=== PATIENT | female | born 1955 | race Caucasian/White ===

== ENCOUNTER 2017-08-25 00:52 | Inpatient (IN) | payer MEDICARE ==
[2017-08-25 01:02] LABS: ADD MAN DIFF? NO
[2017-08-25 01:04] LABS: BASO % 1 % (0-3); EOS # 0.2 x10^3/uL (0.0-0.7); EOS % 2 % (0-3); HEMATOCRIT 36.6 % (36.0-47.0); HEMOGLOBIN 12.5 g/dL (12.0-15.5); LYMPH # 1.9 x10^3/uL (1.0-4.8); LYMPH % 23 % (24-48); MEAN CORPUSCULAR HEMOGLOBIN 30 pg (25-35); MEAN CORPUSCULAR HGB CONC 34 g/dL (31-37); MEAN CORPUSCULAR VOLUME 87 fL (79-100); MONO # 0.6 x10^3/uL (0.0-1.1); MONO % 7 % (0-9); NEUT # 5.5 x10^3uL (1.8-7.7); NEUT % 67 % (31-73); PLATELET COUNT 197 x10^3/uL (140-400); RED BLOOD COUNT 4.21 x10^6/uL (3.50-5.40); RED CELL DISTRIBUTION WIDTH 13.1 % (11.5-14.5); WHITE BLOOD COUNT 8.2 x10^3/uL (4.0-11.0)
[2017-08-25 01:12] LABS: ANION GAP 6 (6-14); BLOOD UREA NITROGEN 17 mg/dL (7-20); BUN/CREATININE RATIO 21 (6-20); CALCIUM 9.1 mg/dL (8.5-10.1); CARBON DIOXIDE 29 mmol/L (21-32); CHLORIDE 108 mmol/L (98-107); CREATININE 0.8 mg/dL (0.6-1.0); GFR 72.7; GLUCOSE 113 mg/dL (70-99); POTASSIUM 3.4 mmol/L (3.5-5.1); SODIUM 143 mmol/L (136-145)
[2017-08-25 01:18] LABS: ALBUMIN 3.7 g/dL (3.4-5.0); ALBUMIN/GLOBULIN RATIO 1.2 (1.0-1.7); ALK PHOS 78 U/L (46-116); ALT (SGPT) 24 U/L (14-59); AST (SGOT) 16 U/L (15-37); TOTAL BILIRUBIN 0.4 mg/dL (0.2-1.0); TOTAL PROTEIN 6.9 g/dL (6.4-8.2)
[2017-08-25 01:21] LABS: TROPONINI < 0.017 ng/mL (0.000-0.055)
[2017-08-25 01:41] LABS: INR 1.1 (0.8-1.1); PARTIAL THROMBOPLASTIN TIME 26 SEC (24-38); PROTHROMBIN TIME PATIENT 13.7 SEC (11.7-14.0)
[2017-08-25] MEDS ORDERED: ONDANSETRON PF 4 MG/2 ML VIAL. IV ×2 (01:45→09:00)
[2017-08-25] MEDS: fentaNYL PF VIAL 100 MCG/2 ML VIAL IV ×6 (01:47→18:01)
[2017-08-25] MEDS: fentaNYL PF VIAL 100 MCG/2 ML VIAL IM (02:00)
[2017-08-25] MEDS: IV NORMAL SALINE 1000ML BAG 1,000 ML IV ×3 (02:30→21:25)
[2017-08-25] MEDS: POTASSIUM CHLORIDE 20 MEQ TABLET.ER. PO (09:18)
[2017-08-25] MEDS: OXYBUTYNIN CHLORIDE 5 MG TABLET PO ×2 (11:46→21:00)
[2017-08-25] MEDS ORDERED: ceFAZolin SODIUM 1 GM in IV DEXTROSE 5% 50 ML IV (14:15)
[2017-08-25] MEDS ORDERED: ceFAZolin SODIUM IV Push 1 GM VIAL. IVP (14:30)
[2017-08-25] MEDS: CALCIUM CARB/VIT D3 250/125 TABLET. PO (17:00)
[2017-08-25 19:09] LABS: MRSA BY PCR Negative (Negative)
[2017-08-25] MEDS: CHOLECALCIFEROL (VITAMIN D3) 1,000 UNIT TABLET PO (21:00)
[2017-08-25] MEDS: CARBIDOPA/LEVODOPA 25/100MG TABLET PO (21:00)
[2017-08-25] MEDS: ATORVASTATIN CALCIUM 10 MG TABLET. PO (21:00)
[2017-08-26] MEDS: fentaNYL PF VIAL 100 MCG/2 ML VIAL IV ×3 (02:28→20:48)
[2017-08-26 03:56] LABS: ADD MAN DIFF? NO
[2017-08-26 04:08] LABS: BASO % 0 % (0-3); EOS # 0.1 x10^3/uL (0.0-0.7); EOS % 1 % (0-3); HEMATOCRIT 35.4 % (36.0-47.0); HEMOGLOBIN 12.3 g/dL (12.0-15.5); LYMPH # 0.9 x10^3/uL (1.0-4.8); LYMPH % 8 % (24-48); MEAN CORPUSCULAR HEMOGLOBIN 30 pg (25-35); MEAN CORPUSCULAR HGB CONC 35 g/dL (31-37); MEAN CORPUSCULAR VOLUME 86 fL (79-100); MONO # 0.7 x10^3/uL (0.0-1.1); MONO % 6 % (0-9); NEUT # 9.5 x10^3uL (1.8-7.7); NEUT % 84 % (31-73); PLATELET COUNT 170 x10^3/uL (140-400); RED BLOOD COUNT 4.14 x10^6/uL (3.50-5.40); RED CELL DISTRIBUTION WIDTH 12.8 % (11.5-14.5); WHITE BLOOD COUNT 11.3 x10^3/uL (4.0-11.0)
[2017-08-26 04:17] LABS: ANION GAP 9 (6-14); BLOOD UREA NITROGEN 9 mg/dL (7-20); CALCIUM 8.4 mg/dL (8.5-10.1); CARBON DIOXIDE 25 mmol/L (21-32); CHLORIDE 105 mmol/L (98-107); CREATININE 0.5 mg/dL (0.6-1.0); GLUCOSE 120 mg/dL (70-99); POTASSIUM 3.4 mmol/L (3.5-5.1); SODIUM 139 mmol/L (136-145)
[2017-08-26] MEDS: CALCIUM CARB/VIT D3 250/125 TABLET. PO ×2 (07:54→14:59)
[2017-08-26] MEDS: OXYBUTYNIN CHLORIDE 5 MG TABLET PO ×2 (07:55→20:29)
[2017-08-26] MEDS: CHOLECALCIFEROL (VITAMIN D3) 1,000 UNIT TABLET PO ×2 (07:55→20:30)
[2017-08-26] MEDS ORDERED: ceFAZolin SODIUM 1 GM in IV DEXTROSE 5% 50 ML IV ×2 (08:00→15:00)
[2017-08-26] MEDS ORDERED: LIDOCAINE 2% PF Vial for OR 5 ML VIAL. (08:34)
[2017-08-26] MEDS ORDERED: DEXAMETHASONE SOD PHOS 20 MG/5 ML VIAL. (08:34)
[2017-08-26] MEDS: POTASSIUM CL 20MEQ D5-0.2%NACL 1,000 ML IV ×2 (08:34→15:00)
[2017-08-26] MEDS ORDERED: PROPOFOL 20 ML IV (08:34)
[2017-08-26] MEDS ORDERED: fentaNYL PF VIAL 100 MCG/2 ML VIAL ×2 (08:35→10:35)
[2017-08-26] MEDS ORDERED: ONDANSETRON PF 4 MG/2 ML VIAL. (08:35)
[2017-08-26] MEDS ORDERED: ROCURONIUM 50 MG/5 ML VIAL. (08:36)
[2017-08-26] MEDS ORDERED: ePHEDrine PF IN SALINE 50 MG/5 ML DISP.SYRIN IV (08:37)
[2017-08-26] MEDS ORDERED: PHENYLEPHRINE in 0.9% NACL PF 1 MG/10 ML SYRINGE. IV (08:38)
[2017-08-26] MEDS ORDERED: MORPHINE SULFATE 2 MG/ML DISP.SYRIN. IV (09:30)
[2017-08-26] MEDS ORDERED: PROCHLORPERAZINE 10 MG/2 ML VIAL. IV (09:30)
[2017-08-26] MEDS ORDERED: ONDANSETRON PF 4 MG/2 ML VIAL. IV (09:30)
[2017-08-26] MEDS ORDERED: fentaNYL PF VIAL 100 MCG/2 ML VIAL IV ×2 (09:30)
[2017-08-26] MEDS: LIDOCAINE 1% PF 2 ML VIAL. ID (09:35)
[2017-08-26] MEDS: IV RINGERS,LACTATED 1000ML 1,000 ML IV (09:47)
[2017-08-26] MEDS: MORPHINE SULFATE 5 MG, KETOROLAC 30 MG, ROPIVacaine 0.5% PF 60 ML, EPINEPHrine 0.5 MG i... INT ART (10:41)
[2017-08-26] MEDS ORDERED: NEOSTIGMINE METHYLSULFATE 5 MG/5 ML SYRINGE. (11:31)
[2017-08-26] MEDS ORDERED: GLYCOPYRROLATE 1 MG/5 ML VIAL. (11:32)
[2017-08-26] MEDS ORDERED: ESMOLOL 100 MG/10 ML VIAL. IV (11:33)
[2017-08-26] MEDS: ceFAZolin SODIUM IV Push 1 GM VIAL. IVP ×2 (14:59→20:53)
[2017-08-26] MEDS: RIVAROXABAN 10 MG TABLET. PO (15:00)
[2017-08-26] MEDS: ATORVASTATIN CALCIUM 10 MG TABLET. PO (20:29)
[2017-08-26] MEDS: CARBIDOPA/LEVODOPA 25/100MG TABLET PO (20:30)
[2017-08-27] MEDS: ceFAZolin SODIUM IV Push 1 GM VIAL. IVP (03:04)
[2017-08-27 04:39] LABS: ADD MAN DIFF? NO
[2017-08-27 04:48] LABS: BASO % 0 % (0-3); EOS % 0 % (0-3); HEMOGLOBIN 10.4 g/dL (12.0-15.5); LYMPH # 0.8 x10^3/uL (1.0-4.8); LYMPH % 6 % (24-48); MEAN CORPUSCULAR HEMOGLOBIN 31 pg (25-35); MEAN CORPUSCULAR HGB CONC 36 g/dL (31-37); MEAN CORPUSCULAR VOLUME 85 fL (79-100); MONO # 0.9 x10^3/uL (0.0-1.1); MONO % 7 % (0-9); NEUT # 11.6 x10^3uL (1.8-7.7); NEUT % 87 % (31-73); PLATELET COUNT 131 x10^3/uL (140-400); RED CELL DISTRIBUTION WIDTH 12.9 % (11.5-14.5); WHITE BLOOD COUNT 13.3 x10^3/uL (4.0-11.0)
[2017-08-27 05:08] LABS: ANION GAP 4 (6-14); BLOOD UREA NITROGEN 11 mg/dL (7-20); CALCIUM 8.4 mg/dL (8.5-10.1); CARBON DIOXIDE 29 mmol/L (21-32); CHLORIDE 104 mmol/L (98-107); CREATININE 0.6 mg/dL (0.6-1.0); GFR 101.3; GLUCOSE 170 mg/dL (70-99); MAGNESIUM 1.9 mg/dL (1.8-2.4); SODIUM 137 mmol/L (136-145)
[2017-08-27] MEDS: fentaNYL PF VIAL 100 MCG/2 ML VIAL IV ×2 (05:49→10:25)
[2017-08-27] MEDS: CALCIUM CARB/VIT D3 250/125 TABLET. PO ×2 (08:00→17:01)
[2017-08-27] MEDS: POTASSIUM CL 20MEQ D5-0.2%NACL 1,000 ML IV ×3 (08:34→23:42)
[2017-08-27] MEDS: OXYBUTYNIN CHLORIDE 5 MG TABLET PO ×2 (09:00→22:23)
[2017-08-27] MEDS: CHOLECALCIFEROL (VITAMIN D3) 1,000 UNIT TABLET PO ×2 (09:00→22:24)
[2017-08-27] MEDS: ACETAMINOPHEN 500 MG TABLET PO ×2 (17:00→22:23)
[2017-08-27] MEDS: RIVAROXABAN 10 MG TABLET. PO (17:01)
[2017-08-27] MEDS: ATORVASTATIN CALCIUM 10 MG TABLET. PO (22:23)
[2017-08-27] MEDS: CARBIDOPA/LEVODOPA 25/100MG TABLET PO (22:24)
[2017-08-28 04:52] LABS: ADD MAN DIFF? NO
[2017-08-28 04:57] LABS: BASO % 0 % (0-3); EOS # 0.3 x10^3/uL (0.0-0.7); EOS % 3 % (0-3); HEMATOCRIT 24.6 % (36.0-47.0); HEMOGLOBIN 8.9 g/dL (12.0-15.5); LYMPH # 1.6 x10^3/uL (1.0-4.8); LYMPH % 16 % (24-48); MEAN CORPUSCULAR HEMOGLOBIN 31 pg (25-35); MEAN CORPUSCULAR HGB CONC 36 g/dL (31-37); MEAN CORPUSCULAR VOLUME 86 fL (79-100); MONO # 0.7 x10^3/uL (0.0-1.1); MONO % 7 % (0-9); NEUT # 7.6 x10^3uL (1.8-7.7); NEUT % 74 % (31-73); PLATELET COUNT 153 x10^3/uL (140-400); RED BLOOD COUNT 2.88 x10^6/uL (3.50-5.40); WHITE BLOOD COUNT 10.2 x10^3/uL (4.0-11.0)
[2017-08-28] MEDS: POTASSIUM CL 20MEQ D5-0.2%NACL 1,000 ML IV ×2 (05:27→15:57)
[2017-08-28] MEDS: fentaNYL PF VIAL 100 MCG/2 ML VIAL IV ×2 (05:31→08:42)
[2017-08-28] MEDS: OXYBUTYNIN CHLORIDE 5 MG TABLET PO ×2 (08:45→21:00)
[2017-08-28] MEDS: CALCIUM CARB/VIT D3 250/125 TABLET. PO ×2 (08:45→15:59)
[2017-08-28] MEDS: CHOLECALCIFEROL (VITAMIN D3) 1,000 UNIT TABLET PO ×2 (08:45→21:00)
[2017-08-28] MEDS: ACETAMINOPHEN 500 MG TABLET PO ×2 (08:49→15:51)
[2017-08-28] MEDS ORDERED: fentaNYL PF VIAL 100 MCG/2 ML VIAL IV (11:15)
[2017-08-28] MEDS: ANTI-COAG MONITOR BY PHARMACY. MC (14:11)
[2017-08-28] MEDS: RIVAROXABAN 10 MG TABLET. PO (15:59)
[2017-08-28] MEDS: traMADol 50 MG TABLET PO (17:45)
[2017-08-28] MEDS ORDERED: CYCLOBENZAPRINE 10 MG TABLET. PO (19:30)
[2017-08-28] MEDS: ATORVASTATIN CALCIUM 10 MG TABLET. PO (21:00)
[2017-08-28] MEDS: CARBIDOPA/LEVODOPA 25/100MG TABLET PO (21:00)
[2017-08-29] MEDS: POTASSIUM CL 20MEQ D5-0.2%NACL 1,000 ML IV (06:26)
[2017-08-29] MEDS: CHOLECALCIFEROL (VITAMIN D3) 1,000 UNIT TABLET PO (08:29)
[2017-08-29] MEDS: CALCIUM CARB/VIT D3 250/125 TABLET. PO (08:29)
[2017-08-29] MEDS: OXYBUTYNIN CHLORIDE 5 MG TABLET PO (08:29)
[2017-08-29] MEDS: traMADol 50 MG TABLET PO (08:45)
[2017-08-29] MEDS: ANTI-COAG MONITOR BY PHARMACY. MC (10:36)
== END 2017-08-29 15:30 | DRG 469 ==
LOC: ER 00:52 → 4 NORTH 01:19
PROC: 0SRR0J9 Replacement of Right Hip Joint, Femoral Surface with Synthetic Substitute, Cemented, Open Approach (ICD-10-PCS; principal; 2017-08-26 09:55)
DX: S72.001A Fracture of unspecified part of neck of right femur, initial encounter for closed fracture (principal); G93.40 Encephalopathy, unspecified; R13.10 Dysphagia, unspecified; Z96.641 Presence of right artificial hip joint; E87.6 Hypokalemia; D64.9 Anemia, unspecified; D72.829 Elevated white blood cell count, unspecified; W18.39XA Other fall on same level, initial encounter; G20 Parkinson's disease; Z88.8 Allergy status to other drugs, medicaments and biological substances; Y93.89 Activity, other specified; Y92.098 Other place in other non-institutional residence as the place of occurrence of the external cause; Y99.8 Other external cause status
CPT/HCPCS: 36415; 51702; 70450; 71045; 73502; 80048; 80053; 82306; 83735; 84484; 85025; 85610; 85730; 87641; 88305; 88311; 92526-GN; 92610-GN; 93005; 97110-GP; 97163-GP; 97166-GO; 97530-GO; 97530-GP; 97535-GO; 99285-25; A7015; C1713; J0171; J0690; J1100; J1885; J2270; J2370; J2405; J2704; J2710; J2795; J3010; J3490; J7030; J7042; J7120